=== PATIENT | male | born 1995 | race Caucasian/White ===

== ENCOUNTER 2018-07-14 14:52 | Emergency (ER) | payer OTHER ==
[2018-07-14 15:18] VITALS: BP 153/94
--- NOTE | 2018-07-14 16:06 | ED ---
Throat Pain/Nasal Congestion - HPI Summary HPI Summary: Pt presents w/ URI sx x 3 days. Started as ST after demolishing part of his home - thought this was from dust, etc however followiung day develop nasal congestion, sinus pressure and dry cough. He's been managing his cough w/ albuterol inhaler which works well. Denies fever, chills, N/V/D, chest pain, wheezing, SOB, cough keeping him up at night. H/o strep as a youth - will test today. Has tried coricidon as well for URI sx - provides relief while in his system. - History of Current Complaint Chief Complaint: UCRespiratory Time Seen by Provider: 07/14/18 15:10 Hx Obtained From: Patient - Allergies/Home Medications Allergies/Adverse Reactions: Allergies Allergy/AdvReac Type Severity Reaction Status Date / Time Penicillins Allergy Rash Verified 07/14/18 15:11 cats and seasonal allergies Allergy Sneezing Uncoded 07/14/18 15:11 Home Medications: Home Medications Cetirizine HCl [Zyrtec] 10 mg PO DAILY 07/14/18 [History Confirmed 07/14/18] Lisinopril 10 mg PO DAILY 07/14/18 [History Confirmed 07/14/18] raNITIdine HCl [Ranitidine HCl] 150 mg PO BID 07/14/18 [History Confirmed ] PMH/Surg Hx/FS Hx/Imm Hx Previously Healthy: Yes Endocrine/Hematology History: Denies: Autoimmune Disease Cardiovascular History: Reports: Hx Hypertension Respiratory History: Reports: Hx Asthma - well controlled - Immunization History Immunizations Up to Date: Yes Infectious Disease History: No Infectious Disease History: Denies: Traveled Outside the [place] in Last 30 Days - Social History Occupation: Unemployed Lives: With Family - parents Alcohol Use: Weekly Hx Substance Use: No Substance Use Type: Reports: None Hx Tobacco Use: No Smoking Status (MU): Never Smoked Tobacco Review of Systems Constitutional: Negative Eyes: Negative Positive: Sore Throat, Nasal Discharge. Negative: Ear Ache Cardiovascular: Negative Positive: Cough. Negative: Shortness Of Breath Gastrointestinal: Negative Positive: no symptoms reported Musculoskeletal: Negative Negative: Rash Negative: Headache Psychological: Normal All Other Systems Reviewed And Are Negative: Yes Physical Exam Triage Information Reviewed: Yes Vital Signs On Initial Exam: Initial Vitals Temp Pulse Resp BP Pulse Ox 99.8 F 95 18 153/94 100 07/14/18 15:13 07/14/18 15:13 07/14/18 15:13 07/14/18 15:13 07/14/18 15:13 Vital Signs Reviewed: Yes Appearance: Positive: Well-Appearing, No Pain Distress, Well-Nourished Skin: Positive: Warm, Skin Color Reflects Adequate Perfusion, Dry - no rash Head/Face: Positive: Normal Head/Face Inspection Eyes: Positive: Normal, EOMI, Conjunctiva Clear. Negative: Conjunctiva Inflammed, Discharge ENT: Positive: Hearing grossly normal, Pharyngeal erythema - mild - cobblestoning, Nasal congestion, Nasal drainage - clear, TMs normal, Tonsillar swelling - +2, Sinus tenderness, Uvula midline. Negative: Tonsillar exudate, Trismus, Muffled voice, Hoarse voice Dental: Negative: Abscess @ Neck: Positive: Supple, No Lymphadenopathy, Tenderness @ Respiratory/Lung Sounds: Positive: Clear to Auscultation, Breath Sounds Present. Negative: Rales, Rhonchi, Wheezes Cardiovascular: Positive: Normal, RRR, S1, S2. Negative: Murmur, Rub Abdomen Description: Positive: Nontender, No Organomegaly, Soft Bowel Sounds: Positive: Present Musculoskeletal: Positive: Normal, Strength/ROM Intact Neurological: Positive: Normal, Sensory/Motor Intact, Alert, Oriented to Person Place, Time, CN Intact II-III Psychiatric: Positive: Normal Diagnostics - Vital Signs Vital Signs Temp Pulse Resp BP Pulse Ox 07/14/18 15:13 99.8 F 95 18 153/94 100 - Laboratory Lab Results: Lab Results 07/14/18 Range/Units 15:35 Group A Strep Rapid Negative (Negative) Lab Statement: Any lab studies that have been ordered have been reviewed, and results considered in the medical decision making process. EENT Course/Dx - Course Course Of Treatment: neg strep -suspect viral URI vs. resp irritation from dust - supportive care and f/u as needed - Diagnoses Provider Diagnoses: URI (upper respiratory infection) Discharge - Sign-Out/Discharge Documenting (check all that apply): Patient Departure All imaging exams completed and their final reports reviewed: No Studies - Discharge Plan Condition: Stable Disposition: HOME Patient Education Materials: Asthma (ED), Upper Respiratory Infection (ED) Referrals: Verenice Villafana NP [Primary Care Provider] - Additional Instructions: Use your inhaler as needed Try the following to aid with your symptoms: Nasal wash (netti pot or saline spray) & salt water throat gargles 2 x day Drink you body weight in ounces of water every day Sleep 8+ hours per night Avoid Dairy and sugar Hot herbal/decaf tea with lemon & honey Chicken broth (preferably organic, free range chicken) Humidifier in house, but especially near bed at night Keep home temperature at 68F or less to reduce dryness Use cough drops/throat lozenges Try a facial steam with or without eucalyptus essential oil or [place]'s Vapor rub for congestion Avoid smoke, candles, perfumes, colognes, scented soaps/detergents , air fresheners and cleaning chemicals as these can cause airway irritation and trigger coughing *If worse, seek medical care - Billing Disposition and Condition Condition: STABLE Disposition: Home - Attestation Statements Provider Attestation: I was available for consult. This patient was seen by the [facility]. The patient was not presented to, seen by, or examined by me. -Pietro
== END 2018-07-14 16:26 | disposition home or self-care (01) ==
LOC: UCEAST 14:52
DX: J06.9 Acute upper respiratory infection, unspecified (principal); I10 Essential (primary) hypertension; Z88.0 Allergy status to penicillin; Z91.048 Other nonmedicinal substance allergy status; Z79.899 Other long term (current) drug therapy
CPT/HCPCS: 87651; 99201; G0463